=== PATIENT | male | born 1985 | race Hispanic/Latino ===

== ENCOUNTER 2017-07-23 06:07 | Emergency (ER) | payer OTHER ==
[2017-07-23 06:39] LABS: #Basophils 0.1 thou/uL (0.0-0.2); #Eosinphils 0.1 thou/uL (0.0-0.7); #Lymphocytes 2.3 thou/uL (1.20-3.40); #Monocytes 0.6 thou/uL (0.11-0.59); #Neutrophils 4.9 thou/uL (1.40-6.50); %Eosinophils 0.9 % (0.0-10.0); %Lymphocytes 29.3 % (21.0-51.0); %Monocytes 7.1 % (0.0-10.0); %Neutrophils 61.8 % (42.0-75.0); Hemoglobin 15.2 g/dL (14.0-18.0); Mean Corpuscular HGB CONC 35.6 g/dL (32.0-36.0); Mean Corpuscular Hemoglobin 28.7 pg (27.0-31.0); Mean Corpuscular Volume 80.6 fl (80.0-94.0); Mean Platelet Volume 8.5 fL (7.4-10.4); Platelet Count 212 thou/uL (130-400); RBC Distribution Width 11.6 % (11.5-14.5); Red Blood Cell (RBC) Count 5.28 mill/uL (4.70-6.10)
[2017-07-23 06:47] LABS: D-Dimer Test 0.37 *mcg/mL (0.27-0.43)
[2017-07-23 07:00] LABS: ALT (SGPT) 16 U/L (8-55); AST (SGOT) 19 U/L (5-34); Albumin 3.5 g/dL (3.5-5.0); Alkaline Phosphatase 106 U/L (40-150); Anion Gap 15 mmol/L (10-20); BUN (Urea Nitrogen) 10 mg/dL (8.9-20.6); Bilirubin, Total 0.3 mg/dL (0.2-1.2); CK (CPK) 86 U/L (30-200); Calc. Creatinine Clearance 0 mL/min (70-130); Calcium 9.5 mg/dL (7.8-10.44); Carbon Dioxide 24 mmol/L (22-29); Chloride 98 mmol/L (98-107); Estimated GFR-MDRD Greater than 90; Globulin 4.2 g/dL (2.4-3.5); Glucose 340 mg/dL (70-105); Potassium 4.3 mmol/L (3.5-5.1); Protein, Total 7.7 g/dL (6.0-8.3); Sodium 133 mmol/L (136-145)
[2017-07-23 07:05] LABS: CKMB 1.9 ng/mL (0-6.6); Troponin I Less than 0.010 ng/mL (< 0.028)
--- NOTE | 2017-07-23 08:12 | RAD ---
PA AND LATERAL VIEWS OF CHEST: Date: 07/23/17 HISTORY: Chest pain. FINDINGS: The heart size is normal. No focal areas of consolidation, pneumothorax, or pleural effusions are see n. No acute osseous abnormalities are identified. IMPRESSION: No radiographic evidence of acute cardiopulmonary process. POS: [facility]
[2017-07-23 09:15] LABS: INR-International Normal Ratio 0.8; Prothrombin Time 11.5 SEC (12.0-14.7)
--- NOTE | 2017-07-23 09:31 | CT ---
CT ANGIO OF CHEST PERFORMED WITH INTRAVENOUS CONTRAST ENHANCEMENT WITH 3D RECONSTRUCTIONS: History: Chest pain x two weeks. FINDINGS: The lungs are clear of any infiltrative process. No pleural effusions or pulmonary nodules are identi fied. There is no significant mediastinal or hilar adenopathy. The thoracic aorta is normal in caliber. There is fairly good pulmonary artery opacification obtained, there is no CT evidence for pulmonary e mbolus. Visualized liver parenchyma shows no focal findings. The gallbladder has been removed. IMPRESSION: No CT evidence for pulmonary embolus. POS: [facility]
--- NOTE | 2017-07-23 10:35 | ULT ---
ULTRASOUND WITH DOPPLER DUPLEX VENOUS LOWER EXTREMITY RIGHT: HISTORY: 32-year-old male with pain and edema in the right lower extremity. TECHNIQUE: Color flow Doppler, spectral waveform analysis of pulsed Doppler, and tapia-scale imaging with mayela altagracia and augmentation, were used to evaluate the right common femoral, femoral, popliteal, posterior tibial, and superficial femoral, veins; and the proximal portions of the profunda femoral and greater saphenous, veins. FINDINGS: There is normal compressibility, demonstration of blood flow by color Doppler and pulsed Doppler, and response to augmentation, in all interrogated veins. IMPRESSION: Negative. No deep vein thrombosis in the right lower extremity. john POS: [facility]
[2017-07-23] MEDS ORDERED: Fentanyl 100 MCG/2 ML VIAL ONE (12:21)
[2017-07-23] MEDS ORDERED: Ketorolac Tromethamine 30 MG/ML VIAL ONE (12:21)
[2017-07-23] MEDS ORDERED: ISOVUE-370 76%-LOCM 1 ML ONE (14:25)
== END 2017-07-23 12:45 | disposition home or self-care (01) ==
LOC: ERS 06:07
DX: R07.89 Other chest pain (principal); M79.651 Pain in right thigh; E11.9 Type 2 diabetes mellitus without complications; E78.5 Hyperlipidemia, unspecified; I10 Essential (primary) hypertension; J44.9 Chronic obstructive pulmonary disease, unspecified
CPT/HCPCS: 36415; 71046; 71275; 80053; 82550; 82553; 84443; 84484; 85025; 85379; 93005; 96361; 96374; J1885; J3010